=== PATIENT | male | born 1955 | race African-American/Black ===

== ENCOUNTER 2016-10-25 05:57 | Emergency (ER) | payer OTHER ==
[~2016-10-25] VITALS: Ht 172.7 cm; Wt 88.2 kg
[~2016-10-25 05:57] MED LIST: Ecotrin PO; LOSARTAN-HCTZ1 EAC1 PO; NORVASC5 MG PO
[2016-10-25 06:42] LABS: HEMATOCRIT 43.1 % (38.0-50.0); MCH 30.3 PG (29.0-34.0); MCHC 34.3 G/DL (30.0-36.0); MCV 88.1 FL (86-99); MEAN PLAT.VOLUME 9.1 uM^3 (9.0-12.4); PLATELET COUNT 268 K/uL (156-360); RBC DIS.WIDTH-CV 12.8 % (11.8-14.6); RED BLOOD COUNT 4.89 M/uL (4.00-5.50); WHITE BLOOD COUNT 3.5 K/uL (4.1-10.2)
[2016-10-25 06:54] LABS: CHLORIDE 104 mEq/L (99-109); POTASSIUM 3.2 mEq/L (3.7-5.4); SODIUM 140 mEq/L (136-147)
[2016-10-25 06:56] LABS: GLUCOSE 119 mg/dL (70-99)
[2016-10-25 06:57] LABS: ANION GAP 10 MEQ/L (2-14)
[2016-10-25 06:58] LABS: TOTAL BILIRUBIN 0.6 mg/dL (0.0-1.0)
[2016-10-25 06:59] LABS: ALKALINE PHOSPHATASE 47 IU/L (3-129)
[2016-10-25 07:00] LABS: GFR ESTIMATE (CALCULATED) > 59 mL/min/
[2016-10-25 07:01] LABS: UREA NITROGEN (BUN) 12 mg/dL (9-23)
[2016-10-25 08:51] LABS: ADD MIUA? YES; BILIRUBIN NEGATIVE; BLOOD NEGATIVE; COLOR YELLOW ((YELLOW)); GLUCOSE (STRIP) NEGATIVE; KETONES NEGATIVE; LEUKOCYTES NEGATIVE; NITRITE NEGATIVE; PROTEIN (STRIP) NEGATIVE; SPECIFIC GRAVITY 1.017 (1.000-1.030); UROBILINOGEN 0.2 MG/DL (0.2-1.0)
[2016-10-25 09:03] LABS: BACTERIA NONE SEEN /HPF; EPITHELIAL CELLS RARE /HPF; MUCUS TRACE /LPF; RED BLOOD CELLS 0-5 /HPF (0-5); UCUL ADDED? NO; WHITE BLOOD CELLS 0-5 /HPF (0-5)
[2016-10-25 10:17] VITALS: BP 139/84
[2016-10-25] MEDS ORDERED: ANTIVERT25 MG PO (10:18)
== END 2016-10-25 10:47 | disposition home or self-care (01) ==
LOC: EME 05:57
DX: R42 Dizziness and giddiness (principal); I10 Essential (primary) hypertension
CPT/HCPCS: 80053; 81003; 85027; 93005; 99281; 99284; J2405; J7030